=== PATIENT | female | born 1975 | race Caucasian/White ===

== ENCOUNTER 2016-12-15 18:52 | Emergency (ER) | payer MEDICAID ==
[~2016-12-15] VITALS: Ht 162.6 cm; Wt 77.1 kg
[2016-12-15] MEDS ORDERED: HYDROCHLOROTHIA1 TAB PO (19:27)
[2016-12-15] MEDS ORDERED: GABAPENTIN 400400 M1 PO (19:28)
[2016-12-15] MEDS ORDERED: VENTOLIN H0.09 MG/Ac IH (19:28)
[2016-12-15] MEDS ORDERED: CLARITIN 10MG T10 MG PO (19:29)
[2016-12-15] MEDS ORDERED: DULOXETINE HYDR30 MG PO (19:29)
[2016-12-15] MEDS ORDERED: FLONASE 50 MCG16 GM (19:30)
[2016-12-15] MEDS ORDERED: TRAMADOL 50MG T50 MG PO (19:30)
--- OUTSIDE RECORDS SUMMARY | 2016-12-15 19:33 | External Medical Summary Rpt ---
Author Author [facility], [employer] Organization [employer] Address Unknown Phone Unavailable
--- OUTSIDE RECORDS SUMMARY | 2016-12-15 19:33 | External Medical Summary Rpt ---
Demographics Preferred Language Tajik Marital Status Unknown Presybeterian Affiliation Unknown Race Unknown Ethnic Group Unknown Author Author , Organization [employer] Address Unknown Phone Unavailable Purpose Continuity of Care Document - through 2016 Immunization No patient found.
--- OUTSIDE RECORDS SUMMARY | 2016-12-15 19:33 | External Medical Summary Rpt ---
Demographics Preferred Language Korean Marital Status Unknown Moravian Affiliation Unknown Race Unknown Ethnic Group Unknown Author Author , Organization [employer] Address Unknown Phone Unavailable Purpose Continuity of Care Document - through 2016 Immunization No patient found.
--- OUTSIDE RECORDS SUMMARY | 2016-12-15 19:33 | External Medical Summary Rpt ---
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
[2016-12-15 19:44] LABS: HEMOGLOBIN 13.1 g/dL (12.2-16.2); LYMPH # 2.6 K/mm3 (0.7-4.5); LYMPH % 26.7 % (10-50.0)
--- NOTE | 2016-12-15 20:24 | Emergency Room Report ---
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 N Clinical Suspician of Infection? N Mental Status: 1 - Regular (Normal Baseline) Sepsis Risk:Low Sepsis Risk Have you (or family members/close friends) recently traveled outside the [place]? N If Yes, where/when: Have you had exposure to infectious disease within the past month? N TB? Other? Specify: Source patient, RN notes reviewed, old records Exam Limitations no limitations Comment sore throat and cough with colored sputum but no hemoptysis- these sx over the last week Cardiac Chest Pain Chest pain indicative of cardiac No Timing/Duration this evening Severity moderate ALLERGIES Coded Allergies: codeine (Mild, 10/23/16) Home Medications Reported Medications LISINOPRIL/HYDROCHLOROTHIAZIDE (Lisinopril-Hctz 10-12.5 MG Tab) 1 TAB PO DAILY #30 Albuterol Sulfate (Ventolin Hfa) 0.09 MG IH PRN PRN SOB #18 Gabapentin (Gabapentin 400MG Capsule) 400 MG PO QID #120 Loratadine (Claritin 10MG) 10 MG PO DAILY #30 DULOXETINE HCL (Duloxetine Hydrochloride) 30 MG PO DAILY #30 Tramadol Hcl (Tramadol 50MG) 50 MG PO TID #30 Fluticasone Propionate (Flonase 50 Mcg Nasal [place]) 1 SPRAY NA BID #16 History Medical History General CAD? No Angina: No NV: No Hypertension? No Hyperlipidemia? No CHF? No DVT? No PE? No COPD? No Asthma? No Anemia? No GERD? No Gastric ulcers? No GI Bleed? No Hernia? No Thyroid Problems? No Hypothyroidism? No CVA? No Seizures? No Diabetes? No Renal Insuffiency? No End Stage Renal Disease? No UTI? No Stones? No BPH? No GB Disease: No Nephritic Syndrome? No Asplenia? No Hepatitis? No Sickle Cell Disease? No Arthritis? No Migraines? No Cataracts? No Glaucoma? No MRSA? No HIV? No TB? No Anxiety? No Depression? No Cancer? No Site: N More? No Immunization Hx DT/Tetanus Unknown Surgical Hx Previous Surgery?Y BACK SURGERY CHOLECYSTECTOMY APPENDECTOMY TONSILLECTOMY MAINTENANCE ASSISTANT Hx LMP Now Social History Smoking Hx Smoker: Current Every Day Smoker Tobacco: Yes Type Cigarettes Packs/day < 1 Pack Are you/the child exposed to second-hand smoke: No Alcohol Alcohol: No Drugs none Review of Systems All Other Systems Reviewed and Negative Constitutional denies fever Eyes denies drainage ENT denies: ear pain, epistaxis, throat pain. Respiratory cough, shortness of breath, denies wheezing Cardiovascular denies chest pain, denies palpitations, denies syncope Gastrointestinal denies abdominal pain, denies diarrhea, denies vomiting Genitourinary denies: dysuria, frequency, hesitancy, hematuria. Musculoskeletal denies back pain, denies joint pain, denies joint swelling, denies neck pain Skin denies rash Psychiatric/Neurological denies headache, denies seizure Physical Exam Vital Signs Vital Signs Date Time Temp Pulse Resp B/P Pulse O2 O2 Flow FiO2 Ox Delivery Rate 12/15 1952 98.8 86 20 143/101 97 12/15 1916 98.8 89 20 160/102 98 - WBC >12,000 or <4,000 or 10% bands? 2 or more SIRS Criteria Met? B/P:143/101 MAP:121 Creatinine >2.0? UA output<0.5ml/kg/hr for 2 hrs? Platelet count >100,000? Lactate >2.0mmol/1? INR >1.2 or PTT > than 60 sec? Evidence of Organ Dysfunction? Provider documented clinical suspician of infection? N Sepsis Criteria Count: 1 Sepsis Risk: Low Sepsis Risk General Appearance no apparent distress Eye Exam - bilateral eye PERRL, bilateral eye EOMI Ear, Nose, Throat normal ENT inspection Neck supple Respiratory Status No: respiratory distress. Lung Sounds bilateral: rhonchi. Cardiovascular regular rate/rhythm, no JVD, no murmur Peripheral Pulses Pulses normal Yes Gastrointestinal soft Extremities normal inspection Strength 4 Upper Ext (L), 4 Upper Ext (R), 4 Lower Ext (L), 4 Lower Ext (R) Neurologic alert, communications executive II-XII nml as tested, no motor/sensory deficits Reflexes Reflexes normal Yes Mental status normal mood/affect Skin intact Medical Decision Making LABS/Meds/Orders Pt receiving controlled substance in ED? No Results/Orders Laboratory Tests 12/15/161929: Lactic Acid 1.1 12/15/161929: Sodium 142, Potassium 4.1, Chloride 105, Carbon Dioxide 26, BUN 10, Creatinine 0.7, Estimated Creat Clear 129, Estimated GFR (MDRD) 92, Glucose 110 H, Calcium 8.6, Total Bilirubin 0.3, AST 10 L, ALT 23, Alkaline Phosphatase 77, Total Protein 6.9, Albumin 3.6, Globulin 3.3 H, Albumin/Globulin Ratio 1.1, WBC 9.8, RBC 4.30, Hgb 13.1, Hct 40.2, MCV 93.3, RDW 13.4, Plt Count 287, MPV 8.2, Gran % 59.6, Gran # 5.8, Lymphocytes % 26.7, Monocytes % 7.2, Eosinophils % 5.7, Basophils % 0.9, Lymphocytes # 2.6, Monocytes # 0.7, Eosinophils # 0.6 H, Basophils # 0.1, PUBS MCHC 32.7, MCH 30.5 Current Medication Orders Sig/Chantal Start time Last Medication Dose Route Stop Time Status Admin Albuterol 2 PUFFS ONCE ONE 12/15 2044 AC IH 12/15 2045 Levofloxacin 500 MG ONCE ONE 12/15 2044 AC PO 12/15 2045 Methylprednisolone 125 MG ONCE ONE 12/15 2044 AC Sodium Succinate IV 12/15 2045 Miscellaneous 1 UNIT ONCE ONE 12/15 2044 AC XX 12/15 2045 Sodium Chloride 10 ML PRN PRN 12/15 1944 AC IV 12/16 1930 Orders Procedure Date/time Status RT REQUEST ALBUTEROL INHALER 12/16 2035 Active CHEST(2 VIEWS-NOT PORTABLE) 12/16 1931 Active IV SALINE LOCK 12/16 1931 Active CULTURE, BLOOD 12/16 1931 Active LACTIC ACID 12/16 1931 Complete CBC WITH AUTO DIFF 12/16 1931 Complete CHEM 12 PROFILE 12/16 1931 Complete XRAY/CT/US XRAY/CT/US XRAY chest XR interpretation by reviewed by me Xray Results normal/NAD Departure Departure Time of Disposition 2028 Disposition DC Home or Self Care(routine) Clinical Impression Primary Impression: Bronchitis Condition STABLE Patient Instructions DI for Cough -- Adult Additional Instructions fluids and use meds and see pcp for follow up Discharge Counseling Counseled pt/family regarding diagnosis, test results, medications/RX, follow up needs Prescriptions Current Visit Scripts Prednisone (Prednisone 20MG) 20 MG PO BID #10 TAB BENZONATATE (Benzonatate) 100 MG PO TID #15 CAP Azithromycin (Zithromycin (Z-JESSICA) 250MG Tab) 250 MG PO DAILY #6 TAB TAKE TWO (2) TABLETS ON DAY 1, THEN ONE (1) TABLET DAY #2 THRU #5 ED Critical Care Critical Care No at [id number]
[2016-12-15] MEDS ORDERED: ZITHROMAX Z PA250 MG PO (20:39)
[2016-12-15] MEDS ORDERED: TESSALON PERLE100 MG PO (20:39)
[2016-12-15] MEDS ORDERED: PREDNISONE 20MG20 MG PO (20:39)
[2016-12-15 20:48] VITALS: BP 121/70
--- NOTE | 2016-12-16 07:53 | RADIOLOGY REPORT PS360 ---
CHEST(2 VIEWS-NOT PORTABLE) COMPARISON: None HISTORY: Cough and congestion TECHNIQUE: PA and lateral chest FINDINGS: The lung ennis are well expanded and appear clear of infiltrate. The cardiac silhouette and vascularity are normal, there is no pleural fluid. There is been previous anterior cervical fusion lower cervical spine. IMPRESSION: Essentially negative chest
== END 2016-12-15 20:48 | disposition home or self-care (01) ==
LOC: ER 18:52
PROVIDERS: Emergency Medicine
DX: J20.9 Acute bronchitis, unspecified (principal); Z72.0 Tobacco use